=== PATIENT | female | born 1990 ===

== ENCOUNTER 2017-08-03 16:15 | Inpatient (IN) | payer OTHER ==
[~2017-08-03] VITALS: Ht 160 cm; Wt 149.0 kg
[2017-08-18] MEDS ORDERED: PRENATABS RX T1 EACH PO (15:05)
== END 2017-08-21 17:31 | disposition home or self-care (01) | DRG 766 ==
LOC: LDR 08-18 06:50 → O/R 08-18 20:47 → OB/GYN 08-19 14:14 → LDR 08-21 16:14 → OB/GYN 08-21 17:31
PROVIDERS: Obstetrics & Gynecology
PROC: 10907ZC Drainage of Amniotic Fluid, Therapeutic from Products of Conception, Via Natural or Artificial Opening (ICD-10-PCS; 2017-08-18)
PROC: 3E0P7VZ Introduction of Hormone into Female Reproductive, Via Natural or Artificial Opening (ICD-10-PCS; 2017-08-18)
PROC: 4A033R1 Measurement of Arterial Saturation, Peripheral, Percutaneous Approach (ICD-10-PCS; 2017-08-18)
PROC: 4A1HXCZ Monitoring of Products of Conception, Cardiac Rate, External Approach (ICD-10-PCS; 2017-08-18)
PROC: 10D00Z1 Extraction of Products of Conception, Low, Open Approach (ICD-10-PCS; principal; 2017-08-18 16:00)
DX: O61.0 Failed medical induction of labor (principal); O99.824 Streptococcus B carrier state complicating childbirth; Z3A.40 40 weeks gestation of pregnancy; Z37.0 Single live birth